=== PATIENT | male | born 1970 | race Caucasian/White ===

== ENCOUNTER 2022-10-13 12:53 | Emergency (ER) | payer OTHER ==
--- OUTSIDE RECORDS SUMMARY | 2022-10-13 12:58 | XMS REPORT | Continuity of Care Document ---
:1970 Author Organization [facility] t Address [address] [place] [address] Care Team Providers Name Role Phone MAI STEVENSON Primary Care Physician Unavailable DESTINEE REES Attending Clinician Unavailable LAB90 Attending Clinician Unavailable Destinee Rees MD Attending Clinician [phone] Nurse, [facility] Attending Clinician Unavailable Shelby Whitlock MD Attending Clinician SHELBY WHITLOCK Attending Clinician Unavailable SHAD DURAN Attending Clinician Unavailable SHAD DURAN Admitting Clinician Unavailable Payers Payer Name Policy Type Policy Number Effective Date Expiration Date S kelsi [employer] 2 [id number] 2021 00:00:00 Problems This patient has no known problems. Allergies, Adverse Reactions, Alerts Allergy Allergy Status Severity Reaction(s) Onset Inactive Treating Comm ents Source Name Type Date Date Clinician NO KNOWN Drug Active Univers ALLERGIE Class it[facility] of [facility] No Known DA Active [facility] Drug [facility] s Social History Social Habit Start Date Stop Date Quantity Comments Source Gender identity [facility] Exposure to 2021-09-27 2021-10-07 Not sure [facility] SARS-CoV-2 (event) 00:00:00 17:12:00 [facility] Tobacco use and 2021-10-07 2021-10-07 Never used Universit y of exposure 00:00:00 00:00:00 [facility] Sex Ass[birth year] At [birth year] [facility] 00:00:00 00:00:00 Smoking Status Start Date Stop Date Source Tobacco smoking consumption Meth [facility] unknown Never smoker [facility] Medications This patient has no known medications. Vital Signs Vital Name Observation Time Observation Value Comments Source Systolic blood 2021-10-07 22:24:00 158 mm[Hg] Univer sity of pressure [facility] Diastolic blood 2021-10-07 22:24:00 110 mm[Hg] [facility] Heart rate 2021-10-07 22:24:00 91 /min [facility] Body temperature 2021-10-07 22:24:00 36.44 [facility] Respiratory rate 2021-10-07 22:24:00 [facility] /[facility] Body weight 2021-10-07 22:24:00 83.462 kg [facility] Oxygen saturation in 2021-10-07 22:24:00 99 /min [facility] Arterial blood by [facility] Pulse oximetry Branch Weight 2019-04-14 05:40:00 102.96 KG Height 2019-04-14 05:40:00 177.8 CM Procedures Procedure Date / Time Performed Performing Clinician Sourc e INTRO ANEST AGENT 2019-04-14 00:00:00 Jacob Levin dical SPINAL CANAL [facility] Center INTRO AIF SP CANAL 2019-04-14 00:00:00 Jacob Avila edical PERQ APPROACH Center Plan of Care Planned Activity Planned Date Details Comments Source Future Scheduled 2022-10-10 Screening for [facility] Test 20:16:53 malignant neoplasm of colon (procedure) [code = 024075240] Future Scheduled 2022-10-10 Screening for [facility] Test 20:16:53 malignant neoplasm of colon (procedure) [code = 264121865] Future Scheduled 2022-10-10 [facility] 20:16:53 (1 of 2) [code = SHINGLES VACCINES (1 of 2)] Future Scheduled 2022-10-10 INFLUENZA VACCINE [facility] Test 20:16:53 [code = INFLUENZA VACCINE] Future Scheduled 2022-10-10 Screening for [facility] Test 20:16:53 malignant neoplasm of colon (procedure) [code = [id number]] Future Scheduled 2022-10-10 Screening for [facility] Test 20:16:53 malignant neoplasm of colon (procedure) [code = [id number]] Future Scheduled 2022-10-10 Screening for [facility] Test 20:16:53 malignant neoplasm of colon (procedure) [code = [id number]] Future Scheduled 2022-10-10 [facility] 20:16:53 (#1) [code = COVID-19 VACCINE (#1)] Encounters Start End Encounter Admission Attending Care Care Encounter Source Date/Time Date/Time Type Type Clinicians Facility Department ID 2021-10-31 2021-10-31 Outpatient DEBORA REES [id number] Debora 08:15:00 08:15:00 DESTINEE Cheemaol chandrakant 2021-10-30 2021-10-30 Outpatient LAB90 DEBORA RODRIGUEZ [id number] Debora 10:30:00 10:30:00 Seybol d 2021-10-30 2021-10-30 Outpatient DEBORA REES [id number] [place] 00:00:00 00:00:00 DESTINEE Seybol d 2021-10-28 2021-10-28 Outpatient LAB90 DEBORA RODRIGUEZ [id number] Debora 16:50:00 16:50:00 Seybol d 2021-10-28 2021-10-28 Office Jero Rees [id number] Debora 16:00:00 16:30:00 Visit Destinee Dick [id number] gretel Forrest [id number] 2021-10-17 2021-10-17 Outpatient DEBORA REES [id number] Debora 08:15:00 08:15:00 DESTINEE Seybol d 2021-10-09 2021-10-09 Outpatient DEBORA REES [id number] Debora 08:30:00 08:30:00 DESTINEE stallings 2021-10-07 2021-10-07 Nurse Nurse, [facility] [id number] Univers 17:15:00 17:35:00 Visit Leander [facility] [id number] eliz [facility] [id number] Venkat as MARVA?BLEA [id number] [address] MEDICAL OFFICE BUILDING 2021-10-07 2021-10-07 Outpatient Jessenia WHITLOCK [facility] [id number] Univers 17:15:00 17:15:00 SHELBY wellington [facility] 2021-10-07 2021-10-07 Outpatient DEBORA REES [id number] Debora 00:00:00 00:00:00 DESTINEE stallings 2019-04-14 2019-04-14 Outpatient Tono DURAN [facility] [id number] 05:26:00 07:30:00 [facility] 2019-03-10 2019-03-10 Outpatient Tono DURAN [facility] [id number] 05:15:00 07:00:00 [facility] [place] Results This patient has no known results.
[2022-10-13] MEDS ORDERED: NA CHLORIDE 0.9% 500 ML ONE (14:02)
--- NOTE | 2022-10-13 14:17 | RAD REPORT ---
EXAM DESCRIPTION: Sneha Single View10/13/2022 2:06 pm CLINICAL HISTORY: Chest pain COMPARISON: none FINDINGS: Elevation left hemidiaphragm The lungs appear clear of acute infiltrate. The heart is normal size
[2022-10-13 14:40] LABS: Absolute Lymphocytes (CBC) 1.2 K/uL (0.7-4.9); Lymphocytes % 22.4 % (15.3-44.8); MCV 96.9 fL (80-100); MPV 7.4 fL (7.6-11.3); RBC Red Blood Cell Count 4.44 M/uL (4.33-5.43)
[2022-10-13 14:57] LABS: Potassium 3.9 mEq/L (3.5-5.1); Troponin High Sensitivity 5.3 pg/mL (<58.9)
[2022-10-13 15:30] LABS: Blood Morphology Comment NOT SEEN (NOT SEEN); Platelet Estimate ADEQ
--- NOTE | 2022-10-13 16:29 | EDPHYS ---
Physician Documentation [facility] Name: Jose Elias Green Age: 52 yrs Sex: Male : 1970 Arrival Date: 10/13/2022 Time: 12:53 Bed 12 Private MD: ED Physician Gabriel Ruiz HPI: 10/13 20:06 This 52 yrs old Male presents to ER via Ambulatory with complaints of Low BP. kdr Historical: - Allergies: 13:13 No Known Allergies; ss - Home Meds: 13:13 valsartan 80 mg oral tablet once [Active]; ss - PMHx: 13:13 Hypertensive disorder; ss - PSHx: 13:13 Thoracic outlet syndrome; Jaw; ss - Immunization history:: Client reports receiving the 2nd dose of the Covid vaccine. - Social history:: Smoking status: Reported history of juuling and/or vaping. Vital Signs: 13:15 BP 95 / 65; Pulse 105; Resp 16; Pulse Ox 95% on R/A; Weight 97.52 kg; Height 5 ft. 10 ss in. ; Pain 0/10; 13:24 Temp 98.2(TE); ss 13:44 BP 90 / 64 LA Supine; Pulse 87; rs5 13:44 BP 95 / 72 LA Sitting; Pulse 93 LA; rs5 13:44 BP 92 / 66 Standing; Pulse 99; rs5 14:30 BP 84 / 53; Pulse 89; Resp 26; Pulse Ox 95% on R/A; eh3 14:45 BP 95 / 68; Pulse 90; Resp 20; Pulse Ox 95% on R/A; eh3 15:00 BP 104 / 72; Pulse 92; Resp 20; Pulse Ox 95% on R/A; eh3 15:15 BP 108 / 72; Pulse 90; Resp 18; Pulse Ox 96% on R/A; eh3 15:30 BP 107 / 73; Pulse 89; Resp 18; Pulse Ox 96% on R/A; eh3 16:00 BP 117 / 89; Pulse 88; Resp 18; Pulse Ox 96% on R/A; eh3 16:30 BP 127 / 87; Pulse 85; Resp 18; Pulse Ox 95% on R/A; eh3 13:15 Body Mass Index 30.85 (97.52 kg, 177.8 cm) ss 13:15 Pain Scale: Adult ss MDM: 16:29 Patient medically screened. kdr 10/13 13:51 Order name: Basic Metabolic Panel; Complete Time: 15:26 kdr 10/13 13:51 Order name: CBC with Diff; Complete Time: 16:19 kdr 10/13 13:51 Order name: Troponin HS; Complete Time: 15:26 kdr 10/13 15:30 Order name: Manual Differential; Complete Time: 16:19 EDMS 10/13 13:51 Order name: XRAY Chest (1 view); Complete Time: 14:31 kdr 10/13 13:51 Order name: EKG; Complete Time: 13:51 kdr 10/13 13:24 Order name: Orthostatics; Complete Time: 13:43 ss 10/13 13:51 Order name: Cardiac monitoring; Complete Time: 14:33 kdr 10/13 13:51 Order name: EKG - Nurse/Tech; Complete Time: 14:34 kdr 10/13 13:51 Order name: IV Saline Lock; Complete Time: 14:34 kdr 10/13 13:51 Order name: Labs collected and sent; Complete Time: 14:34 kdr 10/13 13:51 Order name: O2 Per Protocol; Complete Time: 14:34 kdr 10/13 13:51 Order name: O2 Sat Monitoring; Complete Time: 14:34 kdr Administered Medications: 14:15 Drug: NS 0.9% IV 500 ml Route: IV; Rate: bolus; Site: left antecubital; eh3 15:42 Follow up: IV Status: Completed infusion; IV Intake: 500ml 3 Disposition Summary: 10/13/22 16:29 Discharge Ordered Location: Home kdr Problem: new kdr Symptoms: have improved kdr Condition: Stable kdr Diagnosis - Hypertensive heart disease without heart failure - Poorly controlled kdr - Renal insufficiency kdr Followup: kdr - With: Private Physician - When: 2 - 3 days - Reason: If symptoms return, Further diagnostic work-up, Recheck today's complaints, Continuance of care, Re-evaluation by your physician Discharge Instructions: - Discharge Summary Sheet kdr - Hypertension, Adult, [id number] kdr - Acute Kidney Injury, Adult kdr Forms: - Medication Reconciliation Form kdr - Thank You Letter kdr Signatures: Dispatcher [employer] Gabriel Delaney MD MD kdr Linnette Peoples RN RN Hernandez, Brii, RN RN eh3
--- NOTE | 2022-10-13 16:29 | ER ---
Nurse's Notes [facility] Name: Jose Elias Green Age: 52 yrs Sex: Male : 1970 Arrival Date: 10/13/2022 Time: 12:53 Bed 12 Private MD: Diagnosis: Hypertensive heart disease without heart failure-Poorly controlled;Renal insufficiency Presentation: 10/13 13:15 Chief complaint: Patient states: "I went to see my doctor this morning because I've ss been having intermittent sharp pains for the last week, and when I get those episodes, my blood pressure shoots up, so I've been doubling up on my BP meds, and I think that is why my blood pressure is low.". Coronavirus screen: Client denies travel out of the [place] in the last 14 days. Ebola Screen: Patient denies exposure to infectious person. Patient denies travel to an Ebola-affected area in the 21 days before illness onset. Initial Sepsis Screen: Does the patient meet any 2 criteria? No. Patient's initial sepsis screen is negative. Does the patient have a suspected source of infection? No. Patient's initial sepsis screen is negative. Risk Assessment: Do you want to hurt yourself or someone else? Patient reports no desire to harm self or others. Onset of symptoms was October 06, 2022. 13:15 Method Of Arrival: Ambulatory ss 13:15 Acuity: DIYA 3 ss Historical: - Allergies: 13:13 No Known Allergies; ss - Home Meds: 13:13 valsartan 80 mg oral tablet once [Active]; ss - PMHx: 13:13 Hypertensive disorder; ss - PSHx: 13:13 Thoracic outlet syndrome; Jaw; ss - Immunization history:: Client reports receiving the 2nd dose of the Covid vaccine. - Social history:: Smoking status: Reported history of juuling and/or vaping. Screenin:30 [facility] ED Fall Risk Assessment (Adult) Score/Fall Risk Level 0 - 2 = Low Risk. Abuse eh3 screen: Denies threats or abuse. Denies injuries from another. Nutritional screening: No deficits noted. Tuberculosis screening: No symptoms or risk factors identified. Assessment: 13:30 General: Appears uncomfortable, Behavior is cooperative, anxious. Pain: Complains of eh3 pain in anterior aspect of left upper chest Pain does not radiate. Neuro: Level of Consciousness is awake, alert, obeys commands, Oriented to person, place, time, situation. Cardiovascular: Capillary refill < 3 seconds Patient's skin is warm and dry. Rhythm is sinus rhythm. Respiratory: Airway is patent Respiratory effort is even, unlabored, Respiratory pattern is regular, symmetrical. GI: Abdomen is round non-distended. Derm: Skin is diaphoretic, Skin is flushed, Skin temperature is warm. Musculoskeletal: Circulation, motion, and sensation intact. 14:30 Reassessment: Patient appears in no apparent distress at this time. Patient and/or eh3 family updated on plan of care and expected duration. Pain level reassessed. Patient is alert, oriented x 3, equal unlabored respirations, skin warm/dry/pink. 15:00 Reassessment: Patient appears in no apparent distress at this time. Patient and/or eh3 family updated on plan of care and expected duration. Pain level reassessed. Patient is alert, oriented x 3, equal unlabored respirations, skin warm/dry/pink. 15:30 Reassessment: Patient appears in no apparent distress at this time. Patient and/or eh3 family updated on plan of care and expected duration. Pain level reassessed. Patient is alert, oriented x 3, equal unlabored respirations, skin warm/dry/pink. 16:00 Reassessment: Patient appears in no apparent distress at this time. Patient and/or eh3 family updated on plan of care and expected duration. Pain level reassessed. Patient is alert, oriented x 3, equal unlabored respirations, skin warm/dry/pink. 16:30 Reassessment: Patient appears in no apparent distress at this time. Patient and/or eh3 family updated on plan of care and expected duration. Pain level reassessed. Patient is alert, oriented x 3, equal unlabored respirations, skin warm/dry/pink. Vital Signs: 13:15 BP 95 / 65; Pulse 105; Resp 16; Pulse Ox 95% on R/A; Weight 97.52 kg; Height 5 ft. 10 ss in. ; Pain 0/10; 13:24 Temp 98.2(TE); ss 13:44 BP 90 / 64 LA Supine; Pulse 87; rs5 13:44 BP 95 / 72 LA Sitting; Pulse 93 LA; rs5 13:44 BP 92 / 66 Standing; Pulse 99; rs5 14:30 BP 84 / 53; Pulse 89; Resp 26; Pulse Ox 95% on R/A; eh3 14:45 BP 95 / 68; Pulse 90; Resp 20; Pulse Ox 95% on R/A; eh3 15:00 BP 104 / 72; Pulse 92; Resp 20; Pulse Ox 95% on R/A; eh3 15:15 BP 108 / 72; Pulse 90; Resp 18; Pulse Ox 96% on R/A; eh3 15:30 BP 107 / 73; Pulse 89; Resp 18; Pulse Ox 96% on R/A; eh3 16:00 BP 117 / 89; Pulse 88; Resp 18; Pulse Ox 96% on R/A; eh3 16:30 BP 127 / 87; Pulse 85; Resp 18; Pulse Ox 95% on R/A; eh3 13:15 Body Mass Index 30.85 (97.52 kg, 177.8 cm) ss 13:15 Pain Scale: Adult ss ED Course: 12:58 Patient arrived in ED. mr 12:59 Gabriel Ruiz MD is Attending Physician. kdr 13:13 Arm band placed on right wrist. ss 13:17 Triage completed. ss 13:26 Brii Hernandez, RN is Primary Nurse. eh3 13:30 Patient has correct armband on for positive identification. Placed in gown. Bed in low eh3 position. Call light in reach. Side rails up X2. Client placed on continuous cardiac and pulse oximetry monitoring. NIBP monitoring applied. Door closed. Noise minimized. Warm blanket given. 13:45 Inserted saline lock: 20 gauge in left antecubital area, using aseptic technique. Blood eh3 collected. 14:08 XRAY Chest (1 view) In Process Unspecified. EDMS 16:40 No provider procedures requiring assistance completed. IV discontinued, intact, eh3 bleeding controlled, No redness/swelling at site. Pressure dressing applied. Administered Medications: 14:15 Drug: NS 0.9% IV 500 ml Route: IV; Rate: bolus; Site: left antecubital; eh3 15:42 Follow up: IV Status: Completed infusion; IV Intake: 500ml eh3 Medication: 16:41 VIS not applicable for this client. eh3 Intake: 15:42 IV: 500ml; Total: 500ml. eh3 Outcome: 16:29 Discharge ordered by . kdr 16:41 Discharged to home ambulatory. 3 16:41 Condition: stable 16:41 Discharge instructions given to patient, Instructed on discharge instructions, follow up and referral plans. Demonstrated understanding of instructions, follow-up care. 16:43 Patient left the ED. 3 Signatures: Dispatcher [employer] EDMS Gabriel Ruiz MD MD kdr Rivera, Mary mr Linnette Peoples RN RN Brii Hernandez RN RN [facility] Merrick Egan 5
[2022-10-13 17:54] VITALS: TEMP 98.2
[2022-10-13 18:19] VITALS: BP 127/87; O2SAT 95
--- NOTE | 2022-10-15 08:23 | EKG ---
Test Date: 2022-10-13 Test Time: 14:14:14 Suction Drum Drier Operator: SPARKLE MEASUREMENT RESULTS: Intervals: Rate: 89 UT: 164 QRSD: 112 QT: 360 QTc: 438 [place]: P: 45 UT: 164 QRS: 50 T: 66 INTERPRETIVE STATEMENTS: Normal sinus rhythm Incomplete right bundle branch block Septal infarct, age undetermined Abnormal ECG Compared to ECG 12/24/2005 10:48:34 Incomplete right bundle-branch block now present Myocardial infarct finding now present Sinus bradycardia no longer present Sinus arrhythmia no longer present Electronically Signed On 10-15-22 08:18:20 CDT by Darek Kwok
== END 2022-10-13 16:43 | disposition home or self-care (01) ==
LOC: ER 12:53
DX: I11.9 Hypertensive heart disease without heart failure (principal); N28.9 Disorder of kidney and ureter, unspecified; I10 Essential (primary) hypertension
CPT/HCPCS: 93005; 85025; 80048; 36415; 84484; 71045; 96360; 99284; J7040

== ENCOUNTER 2023-08-18 21:57 | Emergency (ER) | payer OTHER ==
[2023-08-18 23:08] LABS: Absolute Lymphocytes (CBC) 0.8 K/uL (0.7-4.9); Absolute Monocytes 0.4 K/uL (0.1-1.3); Absolute Neutrophil 2.2 K/uL (1.8-8.0); Basophils % 0.6 % (0-1.3); Eosinophils % 1.4 % (0-4.4); Hematocrit 40.3 % (39.6-49.0); Hemoglobin 13.7 g/dL (13.6-17.9); MCH 31.2 pg (27.0-35.0); MCV 91.6 fL (80-100); MPV 8.2 fL (7.6-11.3); Monocytes % 10.7 % (3.3-12.3); Neutrophils % 63.3 % (41.7-73.7); Platelets 49 thou/uL (152-406); RBC Red Blood Cell Count 4.39 M/uL (4.33-5.43); Red Cell Distribution Width 16.3 % (12.1-15.2)
[2023-08-18 23:15] LABS: ALT/SGPT 152 U/L (16-61); AST/SGOT 257 U/L (15-37); Albumin 3.9 g/dL (3.4-5.0); Alkaline Phosphatase 117 U/L (45-117); BUN Blood Urea Nitrogen 7 mg/dL (7-18); Bicarbonate 26 mEq/L (21-32); Bilirubin Indirect, Calculated 3.2 mg/dL (0.2-0.8); Bilirubin Total 4.2 mg/dL (0.2-1.0); Globulin 3.9 g/dL (2.3-3.5); Glomerular Filtration Rate 108 ml/min (=/>90); Glucose Level 158 mg/dL (74-106); Magnesium 1.8 mg/dL (1.6-2.4); Protein, Total 7.8 g/dL (6.4-8.2); Sodium Level 136 mEq/L (136-145); Troponin High Sensitivity 10.2 pg/mL (<58.9)
[2023-08-18 23:23] LABS: NT PRO-BNP < 5 pg/mL (<125)
[2023-08-18 23:59] LABS: Protime INR 1.09
[2023-08-19 00:33] LABS: Blood Morphology Comment NOT SEEN (NOT SEEN); Platelet Estimate DECR; White Blood Cell Scan OK (OK)
[2023-08-19] MEDS ORDERED: THIAMINE 200 MG/2 ML INJ ONE (01:05)
[2023-08-19] MEDS ORDERED: FOLIC ACID 5 MG/ML VIAL ONE (01:06)
[2023-08-19] MEDS ORDERED: MULTIVITAMINS 10 ML VIAL (INJ) IV ONE (01:06)
--- NOTE | 2023-08-19 04:25 | EDPHYS ---
Physician Documentation [facility] Name: Jose Elias Green Age: 53 yrs Sex: Male : 1970 Arrival Date: 08/18/2023 Time: 21:57 Bed 6 Private MD: ED Physician Uriel Bowser HPI: 08/17 22:09 This 53 yrs old Male presents to ER via Unassigned with complaints of Chest sp4 Pain. 08/18 01:01 Patient 53-year-old male with history of alcohol abuse presents with chest pain. sp4 Patient reports nonexertional chest pain described as intermittent pressure. Patient reports has been drinking heavy up to 12 pack beer daily for the past 20 days. History of prior rehab attendance and history of prior alcohol relapse. History of thoracic outlet syndrome which was surgically fixed at [facility] in 2004. No history of coronary artery disease reported. History of hypertension treated with amlodipine 10 mg p.o. daily.. Historical: - Allergies: 08/17 22:23 No Known Allergies; vc1 - Home Meds: 22:23 valsartan 80 mg Oral tablet once [Active]; vc1 - PMHx: 22:23 Hypertensive disorder; vc1 - PSHx: 22:23 Thoracic outlet syndrome; jaw; vc1 - Immunization history:: Client reports receiving the 2nd dose of the Covid vaccine, Flu vaccine is not up to date. - Infectious Disease History:: Denies. - Social history:: Patient uses alcohol, on a daily basis. 12 pack beer daily. Smoking status: Reported history of juuling and/or vaping. - Family history:: not pertinent. ROS: 08/18 01:01 Constitutional: Negative for fever, chills, and weight loss, positive chest pain sp4 All other systems are negative, Exam: 00:59 Constitutional: This is a well developed, well nourished patient who is awake, alert, sp4 and in no acute distress. Visibly intoxicated Head/Face: Normocephalic, atraumatic. Eyes: Pupils equal round and reactive to light, extra-ocular motions intact. Lids and lashes normal. Conjunctiva and sclera are not injected. Cornea within normal limits. Periorbital areas with no swelling, redness, or edema. ENT: Nares patent. No nasal discharge, no septal abnormalities noted. Tympanic membranes are normal and external auditory canals are clear. Oropharynx with no redness, swelling, or masses, exudates, or evidence of obstruction, uvula midline. Mucous membranes moist. Neck: Trachea midline, no thyromegaly or masses palpated, and no cervical lymphadenopathy. Supple, full range of motion without nuchal rigidity, or vertebral point tenderness. Chest/axilla: Normal chest wall appearance and motion. Nontender with no deformity. No lesions are appreciated. Cardiovascular: Regular rate and rhythm with a normal S1 and S2. No gallops, murmurs, or rubs. Normal PMI, no JVD. No pulse deficits. Respiratory: Lungs have equal breath sounds bilaterally, clear to auscultation and percussion. No rales, rhonchi or wheezes noted. No increased work of breathing, no retractions or nasal flaring. Abdomen/GI: Soft, with normal bowel sounds. No distension or tympany. No guarding or rebound. No evidence of tenderness throughout. Back: No spinal tenderness. No costovertebral tenderness. Skin: Warm, dry with normal turgor. Normal color with no rashes, no lesions, and no evidence of cellulitis. MS/ Extremity: Pulses equal, no cyanosis. Neurovascular intact. Full, normal range of motion. Neuro: Awake and alert, GCS 15, oriented to person, place, time, and situation. Cranial nerves II-XII grossly intact. Motor strength 5/5 in all extremities. Sensory grossly intact. Psych: Awake, alert, with orientation to person, place and time. Behavior, mood, and affect are within normal limits 00:59 ECG was reviewed by the Attending Physician. 22:16 normal sinus rhythm at the rate of 90 right bundle branch block otherwise normal Vital Signs: 08/17 22:21 BP 149 / 95; Pulse 99; Resp 17; Temp 97.9; Pulse Ox 97% ; Weight 90.72 kg; Height 5 ft. vc1 10 in. ; Pain 2/10; 23:00 BP 125 / 85; Pulse 91; Resp 21; Pulse Ox 96% ; jj7 08/18 00:00 BP 139 / 97; Pulse 84; Resp 20; Pulse Ox 96% ; jj7 01:10 BP 130 / 90; Pulse 82; Resp 20; Temp 98.3; Pulse Ox 96% ; jj7 04/16 22:21 Body Mass Index 28.70 (90.72 kg, 177.8 cm) vc1 08/17 22:21 Pain Scale: Adult vc1 [place] Coma Score: 01:01 Eye Response: spontaneous(4). Motor Response: obeys commands(6). Verbal Response: sp4 oriented(5). Total: 15. MDM: 08/17 22:10 Patient medically screened. sp4 08/18 00:55 ED course: IMPRESSION: 1. No evidence of abdominal aortic aneurysm or dissection. 2. No sp4 evidence of pulmonary embolism. 3. Hepatomegaly and hepatic steatosis. Electronically signed by: Kayleigh Talbert MD 08/19/2023 12:42 AM. 01:03 HEART Score: History: Slightly Suspicious (0), ECG: Non specific repolarization sp4 disturbance / LBTB / PM (1), Age: > 45 and < 65 years (1), Risk Factors: 1 or 2 risk factors (1), Troponin: < or = 1 x Normal Limit (0), Total Score = 3. 01:04 Differential diagnosis: acute pericarditis, anxiety, coronary artery disease chest wall sp4 pain, congestive heart failure cholecystitis. The patient was not given aspirin in the Emergency Department. Not indicated due to patient's past medical history. Data reviewed: vital signs, nurses notes, old medical records, lab test result(s), EKG, radiologic studies, CT scan, plain films. ED course: EXAM: XR Chest 1 ViewAP 08/18/2023 at 10:41 PM HISTORY: Chest pain COMPARISON: Chest 1 ViewAP 10/13/2022 report without image TECHNIQUE: Chest 1 ViewAP FINDINGS: Trachea midline. Heart size and pulmonary vessels within normal limits. Lungs clear without evidence of consolidation, mass, or significant pulmonary edema. No significant pleural effusion or pneumothorax. Moderate left hemidiaphragm elevation. This was reported on 10/13/2022 without images available. Mid/lower thoracic spine shows mild leftward convex curvature. This likely represents mild levoscoliosis. IMPRESSION: 1. No radiographic evidence of acute chest disease. 2. Moderate left hemidiaphragm elevation. 3. Mild, mid/lower, thoracic spine levoscoliosis. 01:10 ED course: Patient has signs of moderate alcoholic hepatitis with elevated bilirubin . sp4 CT does not reveal any acute emergencies. Patient's chest pain likely secondary to alcohol abuse and complications of alcohol abuse. No sign of acute coronary syndrome. Patient strongly advised to quit drinking, attend comprehensive rehabilitation, and also begin attendance of alcoholic Anonymous meetings. . 08/17 22:10 Order name: Basic Metabolic Panel; Complete Time: 00:04 [facility] 08/17 22:10 Order name: CBC with Diff; Complete Time: 00:35 [facility] 08/17 22:10 Order name: LFT's; Complete Time: 00: [facility] 08/17 22:10 Order name: Magnesium; Complete Time: 00: [facility] 08/17 22:10 Order name: NT PRO-BNP; Complete Time: 00: [facility] 08/17 22:10 Order name: PT-INR; Complete Time: 00: [facility] 08/17 22:10 Order name: Troponin HS; Complete Time: 00: [facility] 08/17 22:40 Order name: Alcohol Level; Complete Time: 00:35 [facility] 08/17 23:17 Order name: CBC Smear Scan; Complete Time: 00:35 EDMS 08/17 22:10 Order name: XRAY Chest (1 view) [facility] 08/17 22:40 Order name: CT Aorta for Dissection [facility] 08/17 22:10 Order name: Cardiac monitoring; Complete Time: 22: [facility] 08/17 22:10 Order name: EKG - Nurse/Tech; Complete Time: : [facility] 08/17 22:10 Order name: IV Saline Lock; Complete Time: : [facility] 08/17 22:10 Order name: Labs collected and sent; Complete Time: : [facility] 08/17 22:10 Order name: O2 Per Protocol; Complete Time: : [facility] 08/17 22:10 Order name: O2 Sat Monitoring; Complete Time: : EC:59 Rate is 90 beats/min. Rhythm is regular, Normal Sinus Rhythm. QRS [place] is Normal. [place] sp4 interval is normal. QRS interval is prolonged. QT interval is normal. No Q waves. T waves are Normal. No ST changes noted. Clinical impression: No evidence of ischemia. Interpreted by me. Reviewed by me. Administered Medications: 00:45 CANCELLED (Duplicate Order): Banana Bag - (ns 0.9% 1000 ml, folic acid ivpb 1 mg, vc1 [id number] mg, multivitamin1 amp) IV at calculated rate once 01:10 Not Given (Patient Refused; MD Jerome): Banana Bag - (ns 0.9% 1000 ml, folic acid jj7 ivpb 1 mg, [id number] mg, multivitamin1 amp) IV at calculated rate once Disposition Summary: 08/19/23 01:08 Discharge Ordered Problem: new sp4 Symptoms: have improved sp4 Condition: Stable sp4 Diagnosis - Alcohol abuse with intoxication, unspecified sp4 - Alcoholic hepatitis sp4 - Chest pain, unspecified sp4 - Alcoholic hepatitis with hyperbilirubinemia, chronic alcoholism sp4 Followup: sp4 - With: Private Physician - When: 7 - 10 days - Reason: Recheck today's complaints Discharge Instructions: - Discharge Summary Sheet sp4 - Alcoholic Hepatitis sp4 Forms: - Patient Portal Instructions sp4 Signatures: Dispatcher [employer] EDDiann De Luna RN RN vc1 Uriel Bowser MD MD sp4 Oswaldo Quach RN jj7 Corrections: (The following items were deleted from the chart) 08/17 22:10 22:10 BASIC METABOLIC PANEL+C.LAB.BRZ ordered. EDMS EDMS 22:10 22:10 CBC+H.LAB.BRZ ordered. EDMS EDMS 22:10 22:10 HEPATIC FUNCTION+C.LAB.BRZ ordered. EDMS EDMS 22:10 22:10 MAGNESIUM+C.LAB.BRZ ordered. EDMS EDMS 22:10 22:10 PROBNP+C.LAB.BRZ ordered. EDMS EDMS 22:10 22:10 PROTIME (+INR)+COAG.LAB.BRZ ordered. EDMS EDMS 22:10 22:10 Troponin High Sensitivity+C.LAB.BRZ ordered. EDMS EDMS 22:11 22:10 Chest Single View+RAD.RAD.BRZ ordered. EDMS EDMS 22:41 22:41 Angio Aorta For Dissection+CT.RAD.BRZ ordered. EDMS EDMS 08/18 00:45 00:44 Banana Bag - (Multivitamin IV 1 amp, NS 0.9% IV 1000 ml, Thiamine IV 100 mg, vc1 foLIC Acid IVPB 1 mg) IV at calculated rate once ordered. sp4
--- NOTE | 2023-08-19 04:25 | ER ---
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 Client denies travel out of the [place] in the last 14 days. At this time, the client does not indicate any symptoms associated with coronavirus-19. Ebola Screen: Patient negative for fever greater than or equal to 101.5 degrees Fahrenheit, and additional compatible Ebola Virus Disease symptoms Patient denies exposure to infectious person. Patient denies travel to an Ebola-affected area in the 21 days before illness onset. No symptoms or risks identified at this time. Initial Sepsis Screen: Does the patient meet any 2 criteria? No. Patient's initial sepsis screen is negative. Does the patient have a suspected source of infection? No. Patient's initial sepsis screen is negative. Risk Assessment: Do you want to hurt yourself or someone else? Patient reports no desire to harm self or others. Onset of symptoms was August 18, 2023 at 18:30. Care prior to arrival: None. Activity prior to arrival: None. Mechanism of Injury: No Mechanism of Injury. Transition of care: patient was not received from another setting of care. 22:21 Method Of Arrival: Ambulatory vc1 22:21 Acuity: DIYA 3 vc1 Triage Assessment: 22:33 General: Appears in no apparent distress. uncomfortable, Behavior is anxious. Pain: vc1 Complains of pain in left breast Pain does not radiate. Pain currently is 0 out of 10 on a pain scale. at worst was 3 out of 10 on a pain scale. Quality of pain is described as crampy, Pain began 4 hours ago. Is intermittent, Noted to be quiet/stoic, Also complains of no other associated symptoms. EENT: No deficits noted. No signs and/or symptoms were reported regarding the EENT system. Neuro: Level of Consciousness is awake, alert, obeys commands, Oriented to person, place, time, situation, Appropriate for age. Cardiovascular: Chest pain is described as mild, Pain is 3 out of 10 on a pain scale. quality is "crampy". Respiratory: Airway is patent Respiratory effort is even, unlabored, Respiratory pattern is regular, symmetrical, Denies cough, shortness of breath. Derm: Skin is intact, is healthy with good turgor, Skin is dry, Skin is pink, warm \\T\\ dry. Skin temperature is warm. Historical: - Allergies: 22:23 No Known Allergies; vc1 - Home Meds: 22:23 valsartan 80 mg Oral tablet once [Active]; vc1 - PMHx: 22:23 Hypertensive disorder; vc1 - PSHx: 22:23 Thoracic outlet syndrome; jaw; vc1 - Immunization history:: Client reports receiving the 2nd dose of the Covid vaccine, Flu vaccine is not up to date. - Infectious Disease History:: Denies. - Social history:: Patient uses alcohol, on a daily basis. 12 pack beer daily. Smoking status: Reported history of juuling and/or vaping. - Family history:: not pertinent. Screenin:20 [facility] ED Fall Risk Assessment (Adult) History of falling in the last 3 months, jj7 including since admission No falls in past 3 months (0 pts) Confusion or Disorientation No (0 pts) Intoxicated or Sedated No (0 pts) Impaired Gait No (0 pts) Mobility Assist Device Used No (0 pt) Altered Elimination No (0 pt) Score/Fall Risk Level 0 - 2 = Low Risk Oriented to surroundings, Maintained a safe environment, Educated pt \\T\\ family on fall prevention, incl call for assistance when getting out of bed. Abuse screen: Denies threats or abuse. Nutritional screening: No deficits noted. Tuberculosis screening: No symptoms or risk factors identified. Assessment: 22:20 Pain: Denies pain. Pain does not radiate. Pain began 5 HRS AGO. Cardiovascular: Reports jj7 chest pain, Capillary refill < 3 seconds Patient's skin is warm and dry. Vital Signs: 22:21 BP 149 / 95; Pulse 99; Resp 17; Temp 97.9; Pulse Ox 97% ; Weight 90.72 kg; Height 5 ft. vc1 10 in. ; Pain 2/10; 23:00 BP 125 / 85; Pulse 91; Resp 21; Pulse Ox 96% ; jj7 08/18 00:00 BP 139 / 97; Pulse 84; Resp 20; Pulse Ox 96% ; jj7 01:10 BP 130 / 90; Pulse 82; Resp 20; Temp 98.3; Pulse Ox 96% ; jj7 08/17 22:21 Body Mass Index 28.70 (90.72 kg, 177.8 cm) vc1 08/17 22:21 Pain Scale: Adult vc1 [place] Coma Score: 01:01 Eye Response: spontaneous(4). Motor Response: obeys commands(6). Verbal Response: sp4 oriented(5). Total: 15. ED Course: 08/17 22:02 Patient arrived in ED. ra3 22:09 Uriel Bowser MD is Attending Physician. sp4 22:20 Patient has correct armband on for positive identification. Placed in gown. Bed in low jj7 position. Call light in reach. Provided Education on: USE OF CALL MUSA. Client placed on continuous cardiac and pulse oximetry monitoring. NIBP monitoring applied. vehicle monitor technician on. Warm blanket given. 22:20 Inserted saline lock: 20 gauge in left antecubital area, using aseptic technique. Blood jj7 collected. 22:23 Triage completed. vc1 22:24 Arm band placed on right wrist. vc1 22:26 Basic Metabolic Panel Sent. jj7 22:26 CBC with Diff Sent. jj7 22:26 LFT's Sent. jj7 22:26 Magnesium Sent. jj7 22:26 NT PRO-BNP Sent. jj7 22:26 PT-INR Sent. jj7 22:26 Troponin HS Sent. jj7 22:47 XRAY Chest (1 view) In Process Unspecified. EDMS 08/18 00:13 CT Aorta for Dissection In Process Unspecified. EDMS 01:10 No provider procedures requiring assistance completed. IV discontinued, intact, jj7 bleeding controlled, No redness/swelling at site. Pressure dressing applied. Administered Medications: 00:45 CANCELLED (Duplicate Order): Banana Bag - (ns 0.9% 1000 ml, folic acid ivpb 1 mg, vc1 [id number] mg, multivitamin1 amp) IV at calculated rate once 01:10 Not Given (Patient Refused; MD Jerome): Banana Bag - (ns 0.9% 1000 ml, folic acid jj7 ivpb 1 mg, [id number] mg, multivitamin1 amp) IV at calculated rate once Medication: 08/17 22:20 VIS not applicable for this client. jj7 Outcome: 08/18 01:08 Discharge ordered by . ella 01:10 Discharged to home ambulatory, with significant other, jj7 01:10 Condition: good 01:10 Discharge instructions given to patient, Instructed on discharge instructions, follow up and referral plans. Demonstrated understanding of instructions, follow-up care, 01:17 Patient left the ED. jj7 Signatures: Dispatcher [employer] EDMS Diann Stevens RN RN vc1 Oswaldo Quach RN RN jj7 Uriel Bowser MD MD sp4 Alfreda Wong ra3
[2023-08-19 13:00] VITALS: BP 130/90; TEMP 98.3; O2SAT 96
--- NOTE | 2023-08-20 00:05 | RAD REPORT ---
EXAM DESCRIPTION: RAD - Chest Single View - 08/18/2023 10:45 pm CLINICAL HISTORY: Chest pain COMPARISON: Chest 1 View AP 10/13/2022 report without image TECHNIQUE: Chest 1 View AP FINDINGS: Trachea midline. Heart size and pulmonary vessels within normal limits. Lungs clear without evidence of consolidation, mass, or significant pulmonary edema. No significant pleural effusion or pneumothorax. Moderate left hemidiaphragm elevation. This was reported on 10/13/2022 without images available. Mid/lower thoracic spine shows mild leftward convex curvature. This likely represents mild levoscoliosis. IMPRESSION: 1. No radiographic evidence of acute chest disease. 2. Moderate left hemidiaphragm elevation. 3. Mild, mid/lower, thoracic spine levoscoliosis. Electronically signed by: Nik Prasad MD 08/18/2023 11:01 PM CDT Due to temporary technical issues with the PACS/Fluency reporting system, reports are being signed by the in house radiologists without review as a courtesy to insure prompt reporting. The interpreting radiologist is fully responsible for the content of the report.
--- NOTE | 2023-08-20 00:06 | RAD REPORT ---
EXAM DESCRIPTION: CT - Angio Aorta For Dissection - 08/19/2023 6:44 am CLINICAL HISTORY: The patient is 53 years old and is Male; chest pain TECHNIQUE: Axial computed tomographic angiography images of the chest, abdomen and pelvis with intra venous contrast. Sagittal and coronal reformatted images were created and reviewed. This CT exam was performed using one or more of the following dose reduction techniques: automated exposure cont rol, adjustment of the mA and/or kV according to patient size, and/or use of iterative reconstruction technique. MIP reconstructed images were created and reviewed. COMPARISON: No relevant prior studies available. FINDINGS: VASCULATURE: AORTA: No acute findings. No aortic aneurysm. No dissection. PULMONARY ARTERIES: There are no obvious filling defects identified within the pulmonary arteries to suggest pulmonary embolism. GREAT VESSELS OF AORTIC ARCH: No acute findings. No dissection. No arterial occlusion or sign ificant stenosis. CELIAC TRUNK AND MESENTERIC ARTERIES: No acute findings. No occlusion or significant stenosis. RENAL ARTERIES: No acute findings. No occlusion or significant stenosis. ILIAC ARTERIES: No acute findings. No occlusion or significant stenosis. CHEST: LUNGS: Unremarkable. No mass. No consolidation. PLEURAL SPACE: Unremarkable. No significant effusion. No pneumothorax. HEART: Unremarkable. No cardiomegaly. No significant pericardial effusion. ABDOMEN: LIVER: The liver is enlarged and diffusely fatty. GALLBLADDER AND BILE DUCTS: The gallbladder is distended. No calcified gallstones or ductal dilat ation is seen. PANCREAS: Unremarkable. No ductal dilation. No mass. SPLEEN: Unremarkable. No splenomegaly. ADRENALS: Unremarkable. No mass. KIDNEYS AND URETERS: Unremarkable. No hydronephrosis. No solid mass. STOMACH AND BOWEL: The stomach is not well-distended. The small bowel is relatively normal in janet iber. Stool is noted throughout the colon. There is no mucosal thickening or evidence of obstruction. A few scattered colonic diverticula present without surrounding inflammation. PELVIS: APPENDIX: The appendix is normal in caliber without surrounding inflammation. BLADDER: The bladder is moderately distended. REPRODUCTIVE: Unremarkable as visualized. CHEST, ABDOMEN and PELVIS: INTRAPERITONEAL SPACE: Unremarkable. No significant fluid collection. No free air. BONES/JOINTS: Multilevel degenerative change of lower lumbar spine is present. There is no acute fracture of the visualized axial and appendicular skeleton. No dislocation. SOFT TISSUES: There are small bilateral fat containing inguinal hernias. LYMPH NODES: Unremarkable. No enlarged lymph nodes. OTHER FINDINGS: Elevation of left hemidiaphragm is noted. IMPRESSION: 1. No evidence of abdominal aortic aneurysm or dissection. 2. No evidence of pulmonary embolism. 3. Hepatomegaly and hepatic steatosis. Electronically signed by: Kayleigh Talbert MD 08/19/2023 12:42 AM CDT Due to temporary technical issues with the PACS/Fluency reporting system, reports are being signed by the in house radiologists without review as a courtesy to insure prompt reporting. The interpreting radiologist is fully responsible for the content of the report.
== END 2023-08-19 01:17 | disposition home or self-care (01) ==
LOC: ER 21:57
DX: F10.229 Alcohol dependence with intoxication, unspecified (principal); K70.10 Alcoholic hepatitis without ascites; E80.6 Other disorders of bilirubin metabolism; I10 Essential (primary) hypertension
CPT/HCPCS: 36415; 71045; 71275; 74175; 80048; 80076; 82077; 83735; 83880; 84484; 85025; 85610; 93005; J3411; Q9967

== ENCOUNTER 2023-12-29 12:34 | Emergency (ER) | payer OTHER ==
[2023-12-29] MEDS ORDERED: ONDANSETRON 4 MG/2 ML VIAL ONE (13:15)
[2023-12-29] MEDS ORDERED: HYDROMORPHONE HCL 1 MG/ML INJ ONE (13:15)
[2023-12-29 13:30] LABS: Absolute Basophils 0.1 K/uL (0-0.5); Absolute Eosinophils 0.3 K/uL (0-0.5); Absolute Monocytes 1.5 K/uL (0.1-1.3); Absolute Neutrophil 18.7 K/uL (1.8-8.0); Basophils % 0.7 % (0-1.3); Eosinophils % 1.4 % (0-4.4); Hematocrit 37.1 % (39.6-49.0); Hemoglobin 12.7 g/dL (13.6-17.9); Lymphocytes % 4.6 % (15.3-44.8); MCH 34.5 pg (27.0-35.0); MCHC 34.3 g/dL (32.0-36.0); MCV 100.6 fL (80-100); MPV 8.7 fL (7.6-11.3); Monocytes % 6.9 % (3.3-12.3); Neutrophils % 86.4 % (41.7-73.7); Platelets 235 thou/uL (152-406); RBC Red Blood Cell Count 3.69 M/uL (4.33-5.43); Red Cell Distribution Width 17.5 % (12.1-15.2)
[2023-12-29 13:36] LABS: PTT, Activated Partial Thromb 38.1 SECONDS (24.3-36.9); Protime INR 1.91
--- NOTE | 2023-12-29 13:45 | RAD REPORT ---
EXAM DESCRIPTION: CT - Chest Abdomen Pelvis W Cont - 12/29/2023 1:28 pm CLINICAL HISTORY: Chest and abdominal pain COMPARISON: August 2023 CT abdomen TECHNIQUE: Computed axial tomography of the chest, abdomen and pelvis was obtained. 100 cc Isovue-30 0 was administered intravenously. Oral contrast was not requested. This limits evaluation of bowel. All CT scans are performed using dose optimization technique as appropriate and may include automated exposure control or mA/KV adjustment according to patient size. FINDINGS: Elevation left hemidiaphragm with mild left lower atelectasis. Few areas subsegmental atelectasis within the lungs. No mediastinal or hilar lymphadenopathy. No pleural effusion. No pericardial effusion. A cirrhotic liver. Portal vein patent. Recannulization umbilical vein. Small to moderate amount of as cites within the abdomen. Moderate amount ascites within pelvis Spleen mildly to moderately enlarged. Pancreas, adrenals and kidneys unremarkable Increased density within the gallbladder. Small bilateral inguinal hernias No evidence of diverticulitis Degenerative changes involve spine. Subcutaneous tissues IMPRESSION: Cirrhosis with mild to moderate splenomegaly Ascites Increased density within the gallbladder may indicate sludge or stones
[2023-12-29 14:00] LABS: Albumin 2.8 g/dL (3.4-5.0); Albumin/Globulin Ratio 0.6 (1.1-1.8); Anion Gap 8.4 mEq/L (5.0-15.0); Bilirubin Total 10.9 mg/dL (0.2-1.0); Globulin 4.8 g/dL (2.3-3.5); Potassium 4.4 mEq/L (3.5-5.1); Protein, Total 7.6 g/dL (6.4-8.2)
[2023-12-29 14:09] LABS: Specific Gravity > 1.030 (1.005-1.030); Sqamous Epithelial <5 /HPF (None Seen); Urine Bacteria None Seen /HPF (<20); Urine Bilirubin 2+ (Negative); Urine Blood Negative (Negative); Urine Clarity Clear (Clear); Urine Color Dark-Yellow (Yellow); Urine Culture Reflex Order NOT NEEDED; Urine Glucose NEGATIVE (Negative); Urine Ketones NEGATIVE (Negative); Urine Microscopic Reflex YN ORDER UMIC; Urine Nitrite NEGATIVE (Negative); Urine Protein TRACE (Negative); Urine RBC <5 /HPF (None Seen); Urine Urobilinogen 3+ (Normal); Urine WBC <5 /HPF (<5); Urine pH 6.5 (5.0-7.0)
[2023-12-29] MEDS ORDERED: NA CHLORIDE 0.9% 100 ML ONE (14:18)
[2023-12-29] MEDS ORDERED: PIPERACIL/TAZO 3.375 GM VIAL IV ONE (14:18)
--- NOTE | 2023-12-29 14:35 | ER ---
Nurse's Notes [facility] Name: Jose Elias Green Age: 53 yrs Sex: Male : 1970 Arrival Date: 12/29/2023 Time: 12:34 Bed 13 Private MD: Diagnosis: Alcoholic hepatitis, liver cirrhosis, ascites, sepsis Presentation: 12/28 12:46 Chief complaint: Patient states: abd swelling, pain, and SOB x2 days. states he was kc6 seen at [facility] recently and they discharged him. Coronavirus screen: At this time, the client does not indicate any symptoms associated with coronavirus-19. Ebola Screen: No symptoms or risks identified at this time. Initial Sepsis Screen: Does the patient meet any 2 criteria? No. Patient's initial sepsis screen is negative. Does the patient have a suspected source of infection? No. Patient's initial sepsis screen is negative. Risk Assessment: Do you want to hurt yourself or someone else? Patient reports no desire to harm self or others. Onset of symptoms was December 29, 2023. 12:46 Method Of Arrival: Ambulatory [facility] 12:46 Acuity: DIYA 2 6 Historical: - Allergies: 12:47 No Known Allergies; kc6 - PMHx: 12:47 Hypertensive disorder; Cirrhosis of liver; Alcoholism; kc6 - PSHx: 12:47 Thoracic outlet syndrome; jaw; kc6 - Immunization history:: Adult Immunizations not up to date. - Infectious Disease History:: Denies. - Social history:: Smoking status: Patient/guardian denies using tobacco. Screenin:37 [facility] ED Fall Risk Assessment (Adult) History of falling in the last 3 months, mb9 including since admission No falls in past 3 months (0 pts) Confusion or Disorientation No (0 pts) Intoxicated or Sedated No (0 pts) Impaired Gait No (0 pts) Mobility Assist Device Used No (0 pt) Altered Elimination No (0 pt) Score/Fall Risk Level 0 - 2 = Low Risk Oriented to surroundings, Maintained a safe environment, Educated pt \T\ family on fall prevention, incl call for assistance when getting out of bed. Abuse screen: Denies threats or abuse. Nutritional screening: No deficits noted. Tuberculosis screening: No symptoms or risk factors identified. Assessment: 13:39 General: Appears uncomfortable, Behavior is cooperative. Pain: Complains of pain in mb9 abdomen. Neuro: Tucker Agitation-Sedation Scale (RASS): 0 - Alert and Calm Level of Consciousness is awake, alert, obeys commands, Oriented to person, place, time, situation, Appropriate for age. Respiratory: Airway is patent Respiratory effort is even, unlabored, Respiratory pattern is regular, symmetrical. GI: Abdomen is round distended, Bowel sounds present X 4 quads. Abd is soft Abdomen is tender to palpation X 4 quads. Reports nausea. : No signs and/or symptoms were reported regarding the genitourinary system. Derm: Skin is pink, warm \T\ dry. Musculoskeletal: Range of motion: intact in all extremities. 15:00 Reassessment: No changes from previously documented assessment. Patient and/or family mb9 updated on plan of care and expected duration. Pain level reassessed. Patient is alert, oriented x 3, equal unlabored respirations, skin warm/dry/pink. 17:37 Reassessment: No changes from previously documented assessment. Patient and/or family mb9 updated on plan of care and expected duration. Pain level reassessed. Patient is alert, oriented x 3, equal unlabored respirations, skin warm/dry/pink. Vital Signs: 12:46 BP 125 / 68; Pulse 84; Resp 19 S; Temp 97.9(O); Pulse Ox 100% on R/A; Weight 106.59 kg kc6 (R); Height 5 ft. 9 in. (R); Pain 9/10; 13:42 BP 123 / 76; Pulse 82; Resp 16; Pulse Ox 95% ; dd2 15:45 BP 122 / 82; Pulse 78; Resp 18; Pulse Ox 97% on R/A; mb9 15:45 BP 134 / 86; Pulse 82; Resp 18; Pulse Ox 95% on R/A; mb9 12:46 Body Mass Index 34.70 (106.59 kg, 175.26 cm) kc6 12:46 Pain Scale: Adult kc6 ED Course: 12:38 Patient arrived in ED. im 12:41 Angel Luis Davalos MD is Attending Physician. sp3 12:45 HATTIE VINES, CRISTOBAL is Primary Nurse. dd2 12:47 Triage completed. kc6 12:47 Arm band placed on. kc6 13:00 Bed in low position. Call light in reach. Side rails up X 1. Provided Education on: mb9 press call light if needing anything. Client placed on continuous cardiac and pulse oximetry monitoring. NIBP monitoring applied. casting cleaner on. 13:14 Inserted saline lock: 20 gauge in right antecubital area, using aseptic technique. dd2 Blood collected. Flushed with 10 mL NS. 13:14 Initial lab(s) drawn, by ED staff, sent to lab. First set of blood cultures drawn by ED dd2 staff. 13:29 CT Chest, Abdomen, Pelvis - W/Contrast In Process Unspecified. EDMS 13:38 No provider procedures requiring assistance completed. EKG done, by ED staff, reviewed dd2 by Angel Luis Davalos MD. 14:34 Roger Eden MD is Hospitalizing Provider. sp3 16:19 initiated transfer to [facility]. bd 17:34 pt accepted in transfer to [facility] rm [address] Krista Serna admin approval given bd by Chelo Khan. 18:03 Patient transferred, IV remains in place. mb9 18:18 pt to be transported by [facility]. bd Administered Medications: 13:15 Drug: Ondansetron IVP 4 mg IVP once; over 2 minutes Route: IVP; Site: right antecubital;mb9 14:08 Follow up: Response: No adverse reaction mb9 13:21 Drug: HYDROmorphone IVP 1 mg IVP once Route: IVP; Site: right antecubital; mb9 14:08 Follow up: Response: No adverse reaction mb9 14:55 Drug: Piperacillin-Tazobactam IVPB 3.375 grams IVPB once over 60 mins; (mix in NS 100 dd2 mL) Route: IVPB; Infused Over: 60 mins; Site: right antecubital; 15:10 Follow up: Response: No adverse reaction dd2 16:00 Follow up: Response: No adverse reaction; IV Status: Completed infusion; IV Intake: dd2 110ml Medication: 17:38 VIS not applicable for this client. mb9 Intake: 16:00 IV: 110ml; Total: 110ml. dd2 Outcome: 14:35 Decision to Hospitalize by Provider. sp3 16:07 ER care complete, transfer ordered by . sp3 18:08 Transferred by ground EMS to [facility], Transfer form completed. mb9 X-rays sent w/ patient. 18:08 Condition: stable 18:08 Instructed on the need for transfer, 18:40 Patient left the ED. dd2 Signatures: Dispatcher [employer] EDGilda Ramirez Setul, MD MD sp3 Lisa Carcamo RN RN kc6 Rhonda, Katy Rodriguez RN RN mb9 Manisha Mcfarlane DIANA RN RN dd2 Corrections: (The following items were deleted from the chart) 18:03 17:37 BP 122 / 82; Pulse 78bpm; Resp 18bpm; Pulse Ox 97% RA; mb9 mb9
--- NOTE | 2023-12-29 14:35 | EDPHYS ---
Physician Documentation [facility] Name: Jose Elias Green Age: 53 yrs Sex: Male : 1970 Arrival Date: 12/29/2023 Time: 12:34 Bed 13 Private MD: ED Physician Angel Luis Davalos HPI: 12/28 12:57 This 53 yrs old Male presents to ER via Ambulatory with complaints of fluid build up, sp3 Abdominal Pain. 12:57 53-year-old male with history of liver cirrhosis, alcoholism with last drink 40 days sp3 ago recurrent ascites, hypertension presents to the ED with chief complaint chest and abdominal pain coupled with abdominal fullness. Patient states his last paracentesis was approximately 1 week ago at [facility]. 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 Patient today states that the chest and abdominal pain became worse over the last 48 hours and presents for evaluation. He denies headache, fever, URI symptoms, cough, back pain, rash, bleeding, or any other signs or symptoms on ROS at this time.. Historical: - Allergies: 12:47 No Known Allergies; kc6 - PMHx: 12:47 Hypertensive disorder; Cirrhosis of liver; Alcoholism; kc6 - PSHx: 12:47 Thoracic outlet syndrome; jaw; kc6 - Immunization history:: Adult Immunizations not up to date. - Infectious Disease History:: Denies. - Social history:: Smoking status: Patient/guardian denies using tobacco. ROS: 12:58 Constitutional: Negative for fever, chills, and weight loss, Eyes: Negative for injury, sp3 pain, redness, and discharge, ENT: Negative for injury, pain, and discharge, Neck: Negative for injury, pain, and swelling, Respiratory: Negative for shortness of breath, cough, wheezing, and pleuritic chest pain, Back: Negative for injury and pain, MS/Extremity: Negative for injury and deformity, Skin: Negative for injury, rash, and discoloration, Neuro: Negative for headache, weakness, numbness, tingling, and seizure, Psych: Negative for depression, anxiety, suicide ideation, homicidal ideation, and hallucinations, Allergy/Immunology: Negative for hives, rash, and allergies, Endocrine: Negative for neck swelling, polydipsia, polyuria, polyphagia, and marked weight changes, Hematologic/Lymphatic: Negative for swollen nodes, abnormal bleeding, and unusual bruising, 12:58 All other systems are negative, Exam: 12:58 Constitutional: This is a well developed, well nourished patient who is awake, alert, sp3 and in no acute distress. Head/Face: Normocephalic, atraumatic. Eyes: Pupils equal round and reactive to light, extra-ocular motions intact. Lids and lashes normal. Conjunctiva and sclera are non-icteric and not injected. Cornea within normal limits. Periorbital areas with no swelling, redness, or edema. ENT: Nares patent. No nasal discharge, no septal abnormalities noted. External auditory canals are clear. Oropharynx with no redness, swelling, or masses, exudates, or evidence of obstruction, uvula midline. Mucous membranes moist. Neck: Trachea midline, no thyromegaly or masses palpated, and no cervical lymphadenopathy. Supple, full range of motion without nuchal rigidity, or vertebral point tenderness. No Meningismus. Chest/axilla: Normal chest wall appearance and motion. Nontender with no deformity. No lesions are appreciated. Cardiovascular: Regular rate and rhythm with a normal S1 and S2. No gallops, murmurs, or rubs. Normal PMI, no JVD. No pulse deficits. Respiratory: Lungs have equal breath sounds bilaterally, clear to auscultation and percussion. No rales, rhonchi or wheezes noted. No increased work of breathing, no retractions or nasal flaring. Back: No spinal tenderness. No costovertebral tenderness. Full range of motion. Skin: Warm, dry with normal turgor. Normal color with no rashes, no lesions, and no evidence of cellulitis. MS/ Extremity: Pulses equal, no cyanosis. Neurovascular intact. Full, normal range of motion. Neuro: Awake and alert, GCS 15, oriented to person, place, time, and situation. Cranial nerves II-XII grossly intact. Motor strength 5/5 in all extremities. Sensory grossly intact. Cerebellar exam normal. Normal gait. Psych: Awake, alert, with orientation to person, place and time. Behavior, mood, and affect are within normal limits. 12:58 Abdomen/GI: Abdominal fullness with ascites and diffuse abdominal pain to palpation., 13:39 ECG was reviewed by the Attending Physician. EKG demonstrates normal sinus rhythm at 78 sp3 bpm with normal intervals, normal QRS, normal axis, normal ST's ST segments without evidence of acute ischemia. Vital Signs: 12:46 BP 125 / 68; Pulse 84; Resp 19 S; Temp 97.9(O); Pulse Ox 100% on R/A; Weight 106.59 kg kc6 (R); Height 5 ft. 9 in. (R); Pain 9/10; 13:42 BP 123 / 76; Pulse 82; Resp 16; Pulse Ox 95% ; dd2 15:45 BP 122 / 82; Pulse 78; Resp 18; Pulse Ox 97% on R/A; mb9 15:45 BP 134 / 86; Pulse 82; Resp 18; Pulse Ox 95% on R/A; mb9 12:46 Body Mass Index 34.70 (106.59 kg, 175.26 cm) kc6 12:46 Pain Scale: Adult kc6 MDM: 12:41 Patient medically screened. sp3 12:58 Data reviewed: vital signs, nurses notes, lab test result(s), radiologic studies. ED sp3 course: 53-year-old male with PMH above including liver cirrhosis and alcoholic hepatitis now presents with abdominal pain, chest pain and ascites. Differential diagnosis includes liver failure, ascites, electrolyte abnormality, other abdominal pathology, other ACS and/or pulmonary pathology, among others. Workup will include CT scan of the chest abdomen pelvis, laboratory values, EKG and general supportive care including pain and nausea medication. Disposition pending workup and patient course with possible paracentesis as indicated.. 12/28 12:51 Order name: Blood Culture Adult (2) sp3 12/28 12:51 Order name: CBC with Diff; Complete Time: 13:48 sp3 12/28 12:51 Order name: CMP; Complete Time: 14:12 sp3 12/28 12:51 Order name: Lactate w/ 2H reflex if indic.; Complete Time: 13:48 sp3 12/28 12:51 Order name: Protime (+inr); Complete Time: 13:48 sp3 12/28 12:51 Order name: Ptt, Activated; Complete Time: 13:48 sp3 12/28 12:51 Order name: Urinalysis w/ reflexes; Complete Time: 14:12 sp3 12/28 13:00 Order name: Troponin High Sensitivity; Complete Time: 14:12 sp3 12/28 12:51 Order name: CT Chest, Abdomen, Pelvis - W/Contrast; Complete Time: 13:48 sp3 12/28 12:51 Order name: Cardiac monitoring; Complete Time: 13:16 sp3 12/28 12:51 Order name: EKG - Nurse/Tech; Complete Time: 14:05 sp3 12/28 12:51 Order name: IV Saline Lock - Large Bore; Complete Time: 13:17 sp3 12/28 12:51 Order name: Labs collected and sent; Complete Time: 13:21 sp3 12/28 12:51 Order name: O2 Per Protocol; Complete Time: 13:16 sp3 12/28 12:51 Order name: O2 Sat Monitoring; Complete Time: 13:16 sp3 12/28 12:51 Order name: Vital Signs; Complete Time: 13:16 sp3 Administered Medications: 13:15 Drug: Ondansetron IVP 4 mg IVP once; over 2 minutes Route: IVP; Site: right antecubital;mb9 14:08 Follow up: Response: No adverse reaction mb9 13:21 Drug: HYDROmorphone IVP 1 mg IVP once Route: IVP; Site: right antecubital; mb9 14:08 Follow up: Response: No adverse reaction mb9 14:55 Drug: Piperacillin-Tazobactam IVPB 3.375 grams IVPB once over 60 mins; (mix in NS 100 dd2 mL) Route: IVPB; Infused Over: 60 mins; Site: right antecubital; 15:10 Follow up: Response: No adverse reaction dd2 16:00 Follow up: Response: No adverse reaction; IV Status: Completed infusion; IV Intake: dd2 110ml Disposition Summary: 12/29/23 16:07 Transfer Ordered Notes: Transfer Location: [facility] sp3 Reason: Higher level of care sp3 Condition: Stable(12/29/23 16:07) sp3 Problem: an acute exacerbation(12/29/23 16:07) sp3 Symptoms: have worsened(12/29/23 16:07) sp3 Accepting Physician: ELIO [facility]'s internal medicine and hepato(12/29/23 18:40) dd2 Diagnosis - Alcoholic hepatitis, liver cirrhosis, ascites, sepsis sp3 Forms: - Medication Reconciliation Form sp3 - SBAR form sp3 Signatures: Dispatcher [employer] EDMS Angel Luis Davalos MD MD sp3 Lisa Carcamo, RN RN kc6 Rhonda, Katy Rodriguez, RN RN mb9 HATTIE VINES RN RN dd2 Corrections: (The following items were deleted from the chart) 12:51 12:51 BLOOD CULTURE*+BA.LAB.BRZ ordered. EDMS EDMS 12:51 12:51 CBC+H.LAB.BRZ ordered. EDMS EDMS 12:51 12:51 COMPREHENSIVE METABOLIC PANEL+C.LAB.BRZ ordered. EDMS EDMS 12:51 12:51 LACTATE+C.LAB.BRZ ordered. EDMS EDMS 12:51 12:51 PROTIME (+INR)+COAG.LAB.BRZ ordered. EDMS EDMS 12:51 12:51 PTT, ACTIVATED+COAG.LAB.BRZ ordered. EDMS EDMS 12:51 12:51 Urinalysis+U.LAB.BRZ ordered. EDMS EDMS 12:51 12:51 Chest Abdomen Pelvis W Con+CT.RAD.BRZ ordered. EDMS EDMS 14:35 14:35 Telemetry/MedSurg (observation) sp3 sp3 14:35 14:35 sp3 sp3 16:06 14:35 Inpatient Admission sp3 sp3 16:06 14:35 Roger Eden sp3 sp3 16:06 14:35 Stable sp3 sp3 16:06 14:35 an acute exacerbation sp3 sp3 16:06 14:35 have worsened sp3 sp3 16:06 14:35 Standard sp3 sp3 16:06 14:35 alcohol hepatitis, ascites, sepsis sp3 sp3 16:06 14:35 Telemetry/MedSurg (Inpatient) sp3 sp3 16:06 14:35 sp3 sp3 18:40 16:07 TBD [facility] internal medicine and hepato sp3 dd2
--- NOTE | 2023-12-29 16:41 | P.CNS ---
Date of Consult: 12/29/23 Reason for Consult: Possible admission Requesting Physician: Angel Luis Davalos Primary Care Provider: Nora Chief Complaint: Dyspnea, abdominal swelling History of Present Illness: Hospitalist team was contacted for admission, patient was recently inpatient at [facility] facility for cirrhosis. He was reportedly discharged 2 to 3 days ago and instructed to follow-up with his primary care doctor. He has an appointment for this week on Thursday. He began having increasing abdominal swelling and dyspnea which prompted his visit to the emergency department today - Past Medical/Surgical History -: Alcoholic cirrhosis of the liver Psychosocial/ Personal History: Patient lives at home, alone - Social History Smoking Status: Current every day smoker Place of Residence: Home Review of Systems 10-point ROS is otherwise unremarkable Respiratory: Shortness of Breath Gastrointestinal: Abdominal Pain Physical Examination General: Alert, In no apparent distress, Oriented x3 HEENT: Atraumatic, PERRLA, Mucous membr. moist/pink, EOMI Neck: Supple, 2+ carotid pulse no bruit, No LAD, Without JVD or thyroid abnormality Respiratory: Normal air movement, Diminished Cardiovascular: Normal S1 S2, Edema (3+ pitting to right lower extremity, 1+ pitting edema left lower extremity) Gastrointestinal: Normal bowel sounds, Distended, Succussion splash, Ascites, Tenderness Integumentary: No rashes, Other (Jaundiced) Neurological: Normal gait, Normal speech, Normal tone Laboratory Data (last 24 hrs) 12/29/23 12/29/23 12/29/23 13:07 13:07 13:07 WBC 21.60 H Hgb 12.7 L Hct 37.1 L Plt Count 235 PT 21.0 H INR 1.91 APTT 38.1 H Sodium 128 L Potassium 4.4 BUN 33 H Creatinine 1.02 Glucose 120 H Total Bilirubin 10.9 H AST 228 H ALT 142 H Alkaline Phosphatase 313 H Conclusions/Impression: Assessment: Acute decompensated alcoholic cirrhosis of the liver Abdominal ascites secondary to above Leukocytosis-rule out SBP Lower extremity edema Dyspnea Hospitalist team was contacted for admission, patient was recently inpatient at [facility] facility for cirrhosis. He was reportedly discharged 2 to 3 days ago and instructed to follow-up with his primary care doctor. He has an appointment for this week on Thursday. He began having increasing abdominal swelling and dyspnea which prompted his visit to the emergency department today. His labs were significant for a T. bili of 10.9, INR of 1.9, PT of 21. His MELD score is 23 and his Madrey's discriminant function score is 50. His case was discussed with on-call GI team who felt he would be better managed at a facility with hepatology available to manage his decompensated cirrhosis. This was discussed further with the ER team who will attempt transfer to tertiary center for hepatology evaluation. Critical Care: No Time Spent Managing Pts care (In Minutes): 60
[2023-12-29 18:55] VITALS: TEMP 97.9
[2023-12-29 19:00] VITALS: O2SAT 95
[2023-12-29 19:06] VITALS: BP 134/86
--- NOTE | 2023-12-31 12:58 | EKG ---
Test Date: 2023-12-29 Test Time: 13:36:14 Policy Checker: MB MEASUREMENT RESULTS: Intervals: Rate: 78 DC: 146 QRSD: 106 QT: 404 QTc: 460 [place]: P: 51 DC: 146 QRS: 46 T: 52 INTERPRETIVE STATEMENTS: Normal sinus rhythm Septal infarct, age undetermined Abnormal ECG Compared to ECG 08/18/2023 22:16:39 Incomplete right bundle-branch block no longer present Myocardial infarct finding still present Electronically Signed On 12-31-23 12:55:52 CDT by Sridhar Estrada
== END 2023-12-29 18:40 | disposition short-term general hospital (02) ==
LOC: ER 12:34
DX: K70.11 Alcoholic hepatitis with ascites (principal); A41.9 Sepsis, unspecified organism; K70.31 Alcoholic cirrhosis of liver with ascites; F10.20 Alcohol dependence, uncomplicated; D72.829 Elevated white blood cell count, unspecified; F17.210 Nicotine dependence, cigarettes, uncomplicated; R06.00 Dyspnea, unspecified; R60.0 Localized edema
CPT/HCPCS: 87040 ×2; 85025; 81001; 36415; 85610; 83605; 85730; 84484; 80053; 71260; 74177; Q9967; J2543; J1170; J2405; 93005; 96365; 96375; 99285

== ENCOUNTER 2024-01-12 19:50 | Emergency (ER) | payer OTHER ==
[2024-01-12] MEDS ORDERED: ONDANSETRON 4 MG/2 ML VIAL ONE ×2 (21:00→23:10)
[2024-01-12] MEDS ORDERED: MORPHINE 4 MG/ML SYR ONE ×2 (21:01→23:10)
[2024-01-12] MEDS ORDERED: ALBUMIN HUMAN 25% 200 ML IV ONE (21:02)
--- NOTE | 2024-01-12 21:15 | RAD REPORT ---
EXAM DESCRIPTION: CT - Abdomen Pelvis Wo Contrast - 01/12/2024 9:06 pm CLINICAL HISTORY: Abdominal pain. ABD PAIN COMPARISON: Chest Abdomen Pelvis W Cont dated 12/29/2023; Angio Aorta For Dissection dated 08/18/2023 TECHNIQUE: CT imaging of the abdomen and pelvis was performed without contrast. Solid organ, bowel a nd vascular assessment is limited due to lack of IV and oral contrast. All CT scans are performed using dose optimization technique as appropriate and may include automated exposure control or mA/KV adjustment according to patient size. FINDINGS: Elevated left hemidiaphragm noted. The liver has a nodular contour compatible with cirrhosis. . Moderate splenomegaly. Probable cholelit hiasis. The pancreas, adrenal glands and kidneys are within normal limits for a limited non-contrast examination. No bowel obstruction or free air. Mild ascites. The appendix is normal. Sigmoid diverticulosis coli. Mild lower lumbar spondylosis. IMPRESSION: Cirrhosis with [id number] splenomegaly. Mild ascites. A limited non-contrast examination was performed as detailed.
[2024-01-12 21:39] LABS: PT Prothrombin Time 20.6 SECONDS (9.4-12.5); Protime INR 1.87
[2024-01-12 21:49] LABS: Absolute Eosinophils 0.1 K/uL (0-0.5); Absolute Lymphocytes (CBC) 1.1 K/uL (0.7-4.9); Absolute Monocytes 1.1 K/uL (0.1-1.3); Absolute Neutrophil 11.6 K/uL (1.8-8.0); Basophils % 0.3 % (0-1.3); Hematocrit 34.6 % (39.6-49.0); Hemoglobin 11.6 g/dL (13.6-17.9); Lymphocytes % 7.7 % (15.3-44.8); MCH 34.3 pg (27.0-35.0); MCHC 33.6 g/dL (32.0-36.0); MCV 102.3 fL (80-100); MPV 7.8 fL (7.6-11.3); Platelets 143 thou/uL (152-406); RBC Red Blood Cell Count 3.38 M/uL (4.33-5.43); Red Cell Distribution Width 16.5 % (12.1-15.2)
[2024-01-12 21:54] LABS: Albumin 2.5 g/dL (3.4-5.0); Albumin/Globulin Ratio 0.5 (1.1-1.8); Anion Gap 7.6 mEq/L (5.0-15.0); Bilirubin Total 8.3 mg/dL (0.2-1.0); C-Reactive Protein 57.1 mg/L (<3.00); Globulin 4.9 g/dL (2.3-3.5); Potassium 3.6 mEq/L (3.5-5.1); Protein, Total 7.4 g/dL (6.4-8.2)
[2024-01-13] MEDS ORDERED: CEFTRIAXONE 1000 MG/VIAL ONE (00:29)
--- NOTE | 2024-01-13 00:52 | ER ---
Nurse's Notes [facility] Name: Jose Elias Green Age: 53 yrs Sex: Male : 1970 Arrival Date: 01/12/2024 Time: 19:50 Bed 3 Private MD: Diagnosis: Alcoholic cirrhosis of liver with ascites;Tense Ascites with Dyspena, Presentation: 01/11 20:13 Chief complaint: Patient states: Abdominal pain s/p paracentesis yesterday. Pt also cm10 reports pain at the site where they drained him from. Pt also reports shortness of breath. Coronavirus screen: Client denies travel out of the [place] in the last 14 days. At this time, the client does not indicate any symptoms associated with coronavirus-19. Ebola Screen: Patient denies travel to an Ebola-affected area in the 21 days before illness onset. No symptoms or risks identified at this time. Initial Sepsis Screen: Does the patient meet any 2 criteria? HR > 90 bpm. Does the patient have a suspected source of infection? No. Patient's initial sepsis screen is negative. Risk Assessment: Do you want to hurt yourself or someone else? Patient reports no desire to harm self or others. Onset of symptoms was January 12, 2024. 20:13 Method Of Arrival: Ambulatory cm10 20:13 Acuity: DIYA 3 cm10 Triage Assessment: 20:14 General: Appears in no apparent distress. uncomfortable, Behavior is calm, cooperative. cm10 Neuro: No deficits noted. Level of Consciousness is awake, alert, obeys commands, Oriented to person, place, time, situation, Appropriate for age. Derm: Skin is jaundiced. Historical: - Allergies: 20:14 No Known Allergies; cm10 - Home Meds: 21:45 valsartan 80 mg Oral tablet once [Active]; hb - PMHx: 20:14 Alcoholism; cirrhosis of liver; Hypertensive disorder; cm10 - PSHx: 20:14 Thoracic outlet syndrome; jaw; cm10 - Immunization history:: Adult Immunizations up to date. - Infectious Disease History:: Denies. - Social history:: Smoking status: Patient denies any tobacco usage or history of. - Family history:: not pertinent. Screenin:28 [facility] ED Fall Risk Assessment (Adult) History of falling in the last 3 months, hb including since admission No falls in past 3 months (0 pts) Confusion or Disorientation No (0 pts) Intoxicated or Sedated No (0 pts) Impaired Gait No (0 pts) Mobility Assist Device Used No (0 pt) Altered Elimination No (0 pt) Score/Fall Risk Level 0 - 2 = Low Risk Oriented to surroundings, Maintained a safe environment, Educated pt \T\ family on fall prevention, incl call for assistance when getting out of bed. Abuse screen: Denies threats or abuse. Denies injuries from another. Nutritional screening: No deficits noted. Tuberculosis screening: No symptoms or risk factors identified. Assessment: 20:27 General: Appears in no apparent distress. ill, Behavior is calm, cooperative. Pain: hb Pain currently is 9 out of 10 on a pain scale. Neuro: Level of Consciousness is awake, alert, obeys commands, Oriented to person, place, time, situation. Cardiovascular: Patient's skin is warm and dry. Respiratory: Respiratory effort is even, unlabored, Respiratory pattern is regular, symmetrical. GI: Reports diffuse abdominal pain. : No signs and/or symptoms were reported regarding the genitourinary system. EENT: No signs and/or symptoms were reported regarding the EENT system. Derm: Skin is jaundiced. Musculoskeletal: No signs and/or symptoms reported regarding the musculoskeletal system. 21:45 Reassessment: Patient appears in no apparent distress at this time. Patient and/or hb family updated on plan of care and expected duration. Pain level reassessed. Patient is alert, oriented x 3, equal unlabored respirations, skin warm/dry/pink. 22:18 Reassessment: Pt c/o SOB, requesting CPAP. MD notified, RT paged. hb 22:24 Reassessment: RT at bedside for CPAP set up. hb 22:48 Reassessment: Dr Bowser at bedside for paracentesis. hb 23:55 Reassessment: Patient appears in no apparent distress at this time. Patient and/or hb family updated on plan of care and expected duration. Pain level reassessed. Patient is alert, oriented x 3, equal unlabored respirations, skin warm/dry/pink. 01/12 00:36 Reassessment: Patient appears in no apparent distress at this time. Patient and/or hb family updated on plan of care and expected duration. Pain level reassessed. Patient is alert, oriented x 3, equal unlabored respirations, skin warm/dry/pink. 01:00 Reassessment: Patient appears in no apparent distress at this time. Patient and/or hb family updated on plan of care and expected duration. Pain level reassessed. Patient is alert, oriented x 3, equal unlabored respirations, skin warm/dry/pink. Patient states symptoms have improved. Vital Signs: 01/11 20:13 BP 146 / 88; Pulse 114; Resp 19; Temp 97.3; Pulse Ox 94% on R/A; Weight 99.79 kg; cm10 Height 5 ft. 10 in. ; Pain 01/11; 21:45 BP 125 / 93; Pulse 111; Resp 19; Pulse Ox 98% on R/A; hb 22:09 BP 121 / 85; Pulse 110; Resp 24; Pulse Ox 92% on R/A; hb 23:03 BP 139 / 86; Pulse 110; Resp 24; Pulse Ox 100% on CPAP; hb 23:18 BP 138 / 95; Pulse 109; Resp 24; Pulse Ox 94% on R/A; hb 01/12 00:36 BP 138 / 98; Pulse 109; Resp 21; Pulse Ox 95% on R/A; hb 01/11 20:13 Body Mass Index 31.57 (99.79 kg, 177.8 cm) cm10 01/11 20:13 Pain Scale: Adult cm10 [place] Coma Score: 01/13 00:04 Eye Response: spontaneous(4). Motor Response: obeys commands(6). Verbal Response: sp4 oriented(5). Total: 15. ED Course: 01/11 20:13 Patient arrived in ED. cm10 20:14 Triage completed. cm10 20:15 Arm band placed on Patient placed in an exam room, on a stretcher. cm10 20:17 Uriel Bowser MD is Attending Physician. sp4 20:28 Patient has correct armband on for positive identification. Provided Education on: use hb of call light . 21:08 CT Abd/Pelvis - Without Contrast In Process Unspecified. EDMS 21:21 Initial lab(s) drawn, by me, sent to lab. Inserted saline lock: 20 gauge in left hb antecubital area, using aseptic technique. Blood collected. Flushed with 10 mL NS. 21:30 Procedure consent explained by physician. hb 21:42 Tania Short, RN is Primary Nurse. hb 22:49 Assisted provider with: Paracentesis. hb 01/12 01:18 IV discontinued, intact, bleeding controlled, No redness/swelling at site. Pressure hb dressing applied. Administered Medications: 01/11 21:30 Drug: Ondansetron IVP 4 mg IVP once; over 2 minutes Route: IVP; Site: left antecubital; hb 22:00 Follow up: Response: No adverse reaction hb 21:30 Drug: morphine IVP or IV 4 mg IVP once over 4 mins Route: IVP; Infused Over: 4 mins; hb Site: left antecubital; 22:00 Follow up: Response: No adverse reaction hb 21:40 Drug: Albumin IVPB 25 grams 100 ml IVPB once; (Note: Albumin 25% concentration) Volume: hb 100 ml; Route: IVPB; Site: left antecubital; 22:05 Follow up: Response: No adverse reaction; IV Status: Completed infusion; IV Intake: hb 100ml 22:05 Drug: Albumin IVPB 25 grams 100 ml IVPB once; (Note: Albumin 25% concentration) Volume: hb 100 ml; Route: IVPB; Site: left antecubital; 22:34 Follow up: Response: No adverse reaction; IV Status: Completed infusion; IV Intake: hb 100ml 23:18 Drug: morphine IVP or IV 4 mg IVP once over 4 mins Route: IVP; Infused Over: 4 mins; hb Site: left antecubital; 23:40 Follow up: Response: No adverse reaction hb 23:18 Drug: Ondansetron IVP 4 mg IVP once; over 2 minutes Route: IVP; Site: left antecubital; hb 23:40 Follow up: Response: No adverse reaction hb 01/12 00:34 Drug: Rocephin - Rocephin (cefTRIAXone) IVPB 1 grams IVPB once over 30 mins; (mix in 50 br2 mL NS) Route: IVPB; Infused Over: 30 mins; Site: left antecubital; Medication: 01/11 20:28 VIS not applicable for this client. hb Intake: 22:05 IV: 100ml; Total: 100ml. hb 22:34 IV: 100ml; Total: 200ml. hb Outcome: 01/12 00:52 Discharge ordered by MD. jaramillo 01:19 Discharged to home via wheelchair, with family, :19 Condition: stable :19 Discharge instructions given to patient, Instructed on discharge instructions, follow up and referral plans. medication usage, Demonstrated understanding of instructions, follow-up care, medications, Prescriptions given X 3, :19 Patient left the ED. Signatures: Dispatcher [employer] EDMS Tania Short, RN RN Uriel Bowser MD MD sp4 Arin Stephens RN RN cm10 Hilary Coats RN RN br2
--- NOTE | 2024-01-13 00:52 | EDPHYS ---
Physician Documentation [facility] Name: Jose Elias Green Age: 53 yrs Sex: Male : 1970 Arrival Date: 01/12/2024 Time: 19:50 Bed 3 Private MD: ED Physician Uriel Bowser HPI: 01/11 20:18 This 53 yrs old Male presents to ER via Ambulatory with complaints of sp4 Abdominal Pain. 01/13 00:04 53-year-old male presents with complaint of abdominal pain associated with ascites. sp4 Patient has history of liver cirrhosis with associated ascites. Is requesting drainage of ascites. Historical: - Allergies: 01/11 20:14 No Known Allergies; cm10 - Home Meds: 21:45 valsartan 80 mg Oral tablet once [Active]; hb - PMHx: 20:14 Alcoholism; cirrhosis of liver; Hypertensive disorder; cm10 - PSHx: 20:14 Thoracic outlet syndrome; jaw; cm10 - Immunization history:: Adult Immunizations up to date. - Infectious Disease History:: Denies. - Social history:: Smoking status: Patient denies any tobacco usage or history of. - Family history:: not pertinent. ROS: 01/13 00:04 Constitutional: Negative for fever, chills, and weight loss, refer abdominal sp4 distention, positive for abdominal pain, positive for ascites All other systems are negative, Exam: 00:04 Constitutional: This is a well developed, well nourished patient who is awake, alert, sp4 and in no acute distress. positive For jaundice icterus and diffuse abdominal discomfort also tense ascites Head/Face: Normocephalic, atraumatic. Eyes: Pupils equal round and reactive to light, extra-ocular motions intact. Lids and lashes normal. Conjunctiva and sclera are not injected. Cornea within normal limits. Periorbital areas with no swelling, redness, or edema. ENT: Nares patent. No nasal discharge, no septal abnormalities noted. Tympanic membranes are normal and external auditory canals are clear. Oropharynx with no redness, swelling, or masses, exudates, or evidence of obstruction, uvula midline. Mucous membranes moist. Neck: Trachea midline, no thyromegaly or masses palpated, and no cervical lymphadenopathy. Supple, full range of motion without nuchal rigidity, or vertebral point tenderness. Chest/axilla: Normal chest wall appearance and motion. Nontender with no deformity. No lesions are appreciated. Cardiovascular: Regular rate and rhythm with a normal S1 and S2. No gallops, murmurs, or rubs. Normal PMI, no JVD. No pulse deficits. Respiratory: Lungs have equal breath sounds bilaterally, clear to auscultation and percussion. No rales, rhonchi or wheezes noted. No increased work of breathing, no retractions or nasal flaring. Abdomen/GI: Positive diffuse abdominal distention, positive tenderness, positive ascites, positive fluid wave sign Back: No spinal tenderness. No costovertebral tenderness. Skin: Warm, dry with normal turgor. Normal color with no rashes, no lesions, and no evidence of cellulitis. MS/ Extremity: Pulses equal, no cyanosis. Neurovascular intact. Full, normal range of motion. Neuro: Awake and alert, GCS 15, oriented to person, place, time, and situation. Cranial nerves II-XII grossly intact. Motor strength 5/5 in all extremities. Sensory grossly intact. Vital Signs: 01/11 20:13 BP 146 / 88; Pulse 114; Resp 19; Temp 97.3; Pulse Ox 94% on R/A; Weight 99.79 kg; cm10 Height 5 ft. 10 in. ; Pain /10; 21:45 BP 125 / 93; Pulse 111; Resp 19; Pulse Ox 98% on R/A; hb 22:09 BP 121 / 85; Pulse 110; Resp 24; Pulse Ox 92% on R/A; hb 23:03 BP 139 / 86; Pulse 110; Resp 24; Pulse Ox 100% on CPAP; hb 23:18 BP 138 / 95; Pulse 109; Resp 24; Pulse Ox 94% on R/A; hb 01/12 00:36 BP 138 / 98; Pulse 109; Resp 21; Pulse Ox 95% on R/A; hb 01/11 20:13 Body Mass Index 31.57 (99.79 kg, 177.8 cm) cm10 01/11 20:13 Pain Scale: Adult cm10 [place] Coma Score: 01/13 00:04 Eye Response: spontaneous(4). Motor Response: obeys commands(6). Verbal Response: sp4 oriented(5). Total: 15. Procedures: 01/11 23:07 Paracentesis: The risks and benefits of the procedure were discussed with the patient sp4 or guardian in detail, aseptic technique was employed throughout the procedure, the catheter was placed in the right lower quadrant, appoximately 6 liters of fluid was removed, the fluid was Turbid , blood stained , the patient tolerated the procedure well, the patient did not experience any apparent complications, Ultrasound Guided Paracentesis . MDM: 20:35 Patient medically screened. sp4 01/12 00:48 ED course: EXAM DESCRIPTION: CT - Abdomen Pelvis Wo Contrast - 01/12/2024 9:06 pm sp4 CLINICAL HISTORY: Abdominal pain. ABD PAIN COMPARISON: Chest Abdomen Pelvis W Cont dated 12/29/2023; Angio Aorta For Dissection dated 08/18/2023 TECHNIQUE: CT imaging of the abdomen and pelvis was performed without contrast. Solid organ, bowel and vascular assessment is limited due to lack of IV and oral contrast. All CT scans are performed using dose optimization technique as appropriate and may include automated exposure control or mA/KV adjustment according to patient size. FINDINGS: Elevated left hemidiaphragm noted. The liver has a nodular contour compatible with cirrhosis. . Moderate splenomegaly. Probable cholelithiasis. The pancreas, adrenal glands and kidneys are within normal limits for a limited noncontrast examination. No bowel obstruction or free air. Mild ascites. The appendix is normal. Sigmoid diverticulosis coli. Mild lower lumbar spondylosis. IMPRESSION: Cirrhosis with [id number] splenomegaly. Mild ascites. A limited non-contrast examination was performed as detailed.. 01/13 00:04 Differential diagnosis: diverticulitis, gastritis, gastroesophageal reflux disease, sp4 Hepatitis. Data reviewed: vital signs, nurses notes, old medical records, lab test result(s), radiologic studies, CT scan. Consideration of Admission/Observation Escalation of care including admission/observation considered. ED course: Ascites was drained, 6 L of turbid fluid was evacuated. Patient started on cephalexin. Was offered transfer to [facility] for further evaluation at this time patient declines transfer. Stable for discharge home. 01/11 20:49 Order name: CBC with Diff; Complete Time: 22:37 sp4 01/11 20:49 Order name: CMP; Complete Time: 22:37 4 01/11 20:49 Order name: Lipase; Complete Time: 22:37 4 01/11 20:50 Order name: PT-INR; Complete Time: 21:48 4 01/11 20:50 Order name: Lactate w/ 2H reflex if indic.; Complete Time: 22:37 sp4 01/11 20:50 Order name: CRP; Complete Time: 22:37 4 01/11 23:41 Order name: Fluid Cell Count,Body [facility] 01/11 23:42 Order name: Body Fluid Culture [facility] 01/12 00:53 Order name: ALBUMIN, PERITONEAL FLUID EDIA 01/11 20:49 Order name: CT Abd/Pelvis - Without Contrast; Complete Time: 21:48 4 01/11 20:49 Order name: IV Saline Lock; Complete Time: 21:41 [facility] 01/11 20:49 Order name: Labs collected and sent; Complete Time: 21:41 4 01/11 20:49 Order name: Misc. Order: Consent for paracenthesis ; Complete Time: 21:41 sp4 Administered Medications: 01/11 21:30 Drug: Ondansetron IVP 4 mg IVP once; over 2 minutes Route: IVP; Site: left antecubital; hb 22:00 Follow up: Response: No adverse reaction hb 21:30 Drug: morphine IVP or IV 4 mg IVP once over 4 mins Route: IVP; Infused Over: 4 mins; hb Site: left antecubital; 22:00 Follow up: Response: No adverse reaction hb 21:40 Drug: Albumin IVPB 25 grams 100 ml IVPB once; (Note: Albumin 25% concentration) Volume: hb 100 ml; Route: IVPB; Site: left antecubital; 22:05 Follow up: Response: No adverse reaction; IV Status: Completed infusion; IV Intake: hb 100ml 22:05 Drug: Albumin IVPB 25 grams 100 ml IVPB once; (Note: Albumin 25% concentration) Volume: hb 100 ml; Route: IVPB; Site: left antecubital; 22:34 Follow up: Response: No adverse reaction; IV Status: Completed infusion; IV Intake: hb 100ml 23:18 Drug: morphine IVP or IV 4 mg IVP once over 4 mins Route: IVP; Infused Over: 4 mins; hb Site: left antecubital; 23:40 Follow up: Response: No adverse reaction hb 23:18 Drug: Ondansetron IVP 4 mg IVP once; over 2 minutes Route: IVP; Site: left antecubital; hb 23:40 Follow up: Response: No adverse reaction hb 01/12 00:34 Drug: Rocephin - Rocephin (cefTRIAXone) IVPB 1 grams IVPB once over 30 mins; (mix in 50 br2 mL NS) Route: IVPB; Infused Over: 30 mins; Site: left antecubital; Disposition Summary: 01/13/24 00:52 Discharge Ordered Notes: Location: Home sp4 Problem: an acute exacerbation sp4 Symptoms: have improved sp4 Condition: Stable sp4 Diagnosis - Alcoholic cirrhosis of liver with ascites sp4 - Tense Ascites with Dyspena, sp4 Followup: sp4 - With: Private Physician - When: 2 - 3 days - Reason: Recheck today's complaints Discharge Instructions: - Discharge Summary Sheet sp4 - Ascites sp4 Forms: - Patient Portal Instructions sp4 Prescriptions: - tramadol 100 mg Oral tablet - take 1 tablet ORAL route every 8 hours PRN pain; 20 tablet; Refills: 0, Product sp4 Selection Permitted - Cephalexin 500 mg Oral Capsule - take 1 capsule ORAL route every 12 hours for 10 days; 20 capsule; Refills: 0, sp4 Product Selection Permitted - ondansetron 8 mg Oral Tablet,disintegrating - take 1 tablet ORAL route every 8 hours PRN nausea; 30 tablet; Refills: 0, sp4 Product Selection Permitted Signatures: Dispatcher [employer] EDMS Tania Short RN RN Uriel Bowser MD MD sp4 Arin Stephens RN RN cm10 Hilary Coats RN RN br2 Corrections: (The following items were deleted from the chart) 01/11 20:50 20:50 CBC+H.LAB.BRZ ordered. EDMS EDMS 20:50 20:50 COMPREHENSIVE METABOLIC PANEL+C.LAB.BRZ ordered. EDMS EDMS 20:50 20:50 LIPASE+C.LAB.BRZ ordered. EDMS EDMS 20:50 20:50 Urinalysis+U.LAB.BRZ ordered. EDMS EDMS 20:50 20:50 Abdomen Pelvis Wo Con+CT.RAD.BRZ ordered. EDMS EDMS 01/12 00:53 01/11 23:43 Miscellaneous Lab Test+R.LAB.BRZ ordered. EDMS EDMS
[2024-01-13 01:28] VITALS: TEMP 97.3
[2024-01-13 01:28] LABS: Body Fluid WBC 165 /mm^3
[2024-01-13 01:44] LABS: Appearance VERY TURBID (CLEAR); Body Fluid Source PERITONEAL; Color of Supernate Not Xanthochromic (Not Xantho); Color of fluid Orange (COLORLESS); Tube # SINGLE
[2024-01-13 01:46] LABS: Body Fluid Lymphocytes 65 %; Fluid Total Cells Count 100
[2024-01-13 01:48] VITALS: BP 138/98; O2SAT 95
== END 2024-01-13 01:19 | disposition home or self-care (01) ==
LOC: ER 19:50
PROC: 0W9G3ZZ Drainage of Peritoneal Cavity, Percutaneous Approach (ICD-10-PCS; principal; 2024-01-13)
DX: K70.31 Alcoholic cirrhosis of liver with ascites (principal); R06.00 Dyspnea, unspecified; F10.20 Alcohol dependence, uncomplicated; I10 Essential (primary) hypertension
CPT/HCPCS: 96365; 87070; 85025; 36415; 89050; 85610; 83605; 83690; 80053; 82042; 86140; 74176; 96375; 99284; 94660; 49083; J2405 ×2; P9047; J0696; 87077; 87186